=== PATIENT | male | born 1975 | race Caucasian/White ===

== ENCOUNTER 2021-11-30 14:43 | Emergency (ER) | payer OTHER, SELFPAY ==
--- NOTE | ~2021-11-30 | XR_ITS ---
XR ankle LT min 3V, XR foot LT min 3V 11/30/2021 15:34 Indication: Left foot pain after fall Procedure: 4 views left ankle and 4 views left foot Comparison: No prior studies for comparison. Findings: There are fractures involving the base of the second, third and fourth metatarsals with lat eral displacement of the second-fifth metatarsals (i.e. Lisfranc fracture dislocation). Ankle mortise intact. No significant soft tissue abnormality. Impression: 1: Lisfranc fracture/dislocation involving the second-fifth metatarsals Reviewed, dictated and finalized at location A. Impression: 1: Lisfranc fracture/dislocation involving the second-fifth metatarsals Impression: 1: Lisfranc fracture/dislocation involving the second-fifth metatarsals
[2021-11-30 14:44] VITALS: BP 154/102; PULSE 105; RESP 16; TEMP 36.1; O2SAT 95
[2021-11-30] MEDS: HYDROcodone/acetaminophen (*CRX) 5-325 MG TABLET 1 TAB PO (16:32)
--- NOTE | 2021-11-30 16:45 | ED.GENADULT ---
HPI - General Adult General Chief complaint: Extremity Injury, Lower Stated complaint: left foot injury - fall from golf cart Time Seen by Provider: 11/30/21 14:43 Source: RN notes reviewed History of Present Illness HPI narrative: Patient presents emergency department from home for left foot and ankle pain. Patient states that yesterday he fell out of his golf cart and ran over his foot states that since that time has been having pain and swelling in his left foot and has been unable to stand on it secondary to the pain. He does note an abrasion to his left knee from the fall but denies any pain in the left knee he denies any loss of consciousness he denies any chest pain shortness of breath abdominal pain numbness or tingling to extremities or any other symptoms Related Data Allergies Allergy/AdvReac Type Severity Reaction Status Date / Time No Known Allergies Allergy Unknown Verified 11/30/21 15:39 Review of Systems Review of Systems: Gen.: Denies fevers or chills Eyes: Denies eye pain or visual change ENT: Denies facial pain Respiratory: Denies shortness of breath CV: Denies chest pain GI: Denies abdominal pain nausea, emesis Musculoskeletal: See HPI Neuro: Denies numbness, tingling, weakness or focal weakness Skin: Denies rash Except as documented, all other systems reviewed and negative [facility] Past Medical History Medical History Kidney stones Umbilical hernia Surgical History Surgical History (Updated 03/15/19 @ 08:35 by Olimpia Grissom) History of umbilical hernia repair Social History Social History Smoking status: Current every day smoker Tobacco type: cigarettes Additional smoking assessment comments: 5 packs per week for about 23 years; smoking exposure Alcohol use details: 24 pack/week Other substance usage details: Occasional marijuana Gender identity (if verbalized by the patient): Male Exam Narrative: APPEARANCE: No acute distress, nontoxic, resting in bed EYES: EOMI HEENT: Normocephalic, atraumatic, OMM RESPIRATORY: No respiratory distress Clear to auscultation bilaterally with no rhonchi wheezing or rales. CARDIOVASCULAR: Regular rate and rhythm without murmurs rubs or gallops. ABDOMINAL: Soft, nontender, nondistended, no rebound or guarding MUSCULOSKELETAl: Moves all extremities. No clubbing, cyanosis no tenderness of the bilateral upper extremities or right lower extremity no tenderness of the left knee with full range of motion tender to palpation diffusely of the left foot and ankle with swelling and ecchymosis present dorsalis pedis pulse 2+ neurovascular intact no tenderness of the proximal fibula NEURO: Awake and alert. Following commands, speech normal, no focal deficits SKIN:: Warm, dry. No rashes lesions or abrasions PSYCHIATRIC: Normal affect/mood, Course Course Emergency Course: Discussed with Dr. Mena orthopedics states he does not perform foot and ankle surgery and patient does need a foot ankle specialist will transfer this time Discussed with patient need for transfer request [facility] Discussed with Dr. Doherty at [facility] ED accepts transfer Vital Signs Vital signs: Vital Signs Temperature 97.0 F L 11/30/21 14:44 Pulse Rate 105 H 11/30/21 14:44 Respiratory Rate 16 11/30/21 14:44 Blood Pressure 154/102 H 11/30/21 14:44 Pulse Oximetry 95 11/30/21 14:44 Oxygen Delivery Room Air 11/30/21 14:44 Temperature 97.0 F L 11/30/21 14:44 Pulse Rate 90 11/30/21 16:49 Respiratory Rate 16 11/30/21 16:49 Blood Pressure 146/89 H 11/30/21 16:49 Pulse Oximetry 97 11/30/21 16:49 Oxygen Delivery Room Air 11/30/21 14:44 Medical Decision Making Vital Signs Vital Signs: Vital Signs Temperature 97.0 F L 11/30/21 14:44 Pulse Rate 105 H 11/30/21 14:44 Respiratory Rate 16 11/30/21 14:44 Blood Pressure
[2021-11-30 16:49] VITALS: BP 146/89; PULSE 90; RESP 16; O2SAT 97
[2021-11-30] MEDS: TETANUS,DIPHTHERIA,AC PERTUSSIS ADULT (0.5 ML) BOOSTRIX IM (17:01)
--- NOTE | 2021-11-30 17:30 | PC.NURSE ---
pt. refused ambulance went pov to [facility]
== END 2021-11-30 16:49 | disposition short-term general hospital (02) ==
PROVIDERS: Emergency Provider Emergency Medicine
DX: S92.322A Displaced fracture of second metatarsal bone, left foot, initial encounter for closed fracture (principal); S92.332A Displaced fracture of third metatarsal bone, left foot, initial encounter for closed fracture; S92.342A Displaced fracture of fourth metatarsal bone, left foot, initial encounter for closed fracture; S92.352A Displaced fracture of fifth metatarsal bone, left foot, initial encounter for closed fracture; S80.212A Abrasion, left knee, initial encounter; Z23 Encounter for immunization; Z87.442 Personal history of urinary calculi; F17.210 Nicotine dependence, cigarettes, uncomplicated; V86.99XA Unspecified occupant of other special all-terrain or other off-road motor vehicle injured in nontraffic accident, initial encounter
CPT/HCPCS: 29515; 73610; 73630; 90471; 90715; 99284; A9270

== ENCOUNTER 2024-11-26 15:01 | Emergency (ER) | payer BC, SELFPAY ==
--- NOTE | ~2024-11-26 | XR_ITS ---
CHEST RADIOGRAPH, PA AND LATERAL CLINICAL HISTORY: Chest pain . COMPARISON: None available TECHNIQUE: PA and lateral views of the chest. FINDINGS The cardiomediastinal silhouette is unremarkable. The lungs are clear. IMPRESSION: No focal infiltrate or effusion. Reviewed, dictated and finalized at location A.
--- NOTE | ~2024-11-26 | CT_ITS ---
EXAMINATION: CTA chest DATE: 11/26/2024 18:44 INDICATION: Dyspnea radiating to the back TECHNIQUE: Computed tomographic angiography (CTA) of the chest was performed without and with 100 mL Omnipaque-350 intravenous contrast. Volume-rendered 3D-reconstructions of the aorta and large arterie s were constructed by the technologist on a separate workstation. Automated exposure control and iter ative reconstruction technique were employed. The dose-length product was 910.61 mGy-cm. COMPARISON: None. FINDINGS: No pulmonary embolism. Mild discoid atelectasis at the anterobasilar segment of the left lower lobe. No pneumonia, pulmonary edema, pleural effusion or pneumothorax. Heart size is normal. No pericardial or pleural effusion. Thoracic aorta is normal in caliber with no dissection. No pathologically enlar ged thoracic lymphadenopathy. Diffuse hepatic steatosis.. Moderate thoracic spondylosis with bridgin g osteophytes at multiple levels consistent with diffuse idiopathic skeletal hyperostosis (DISH). IMPRESSION: 1. No pulmonary embolism or other acute cardiopulmonary disease. Reviewed, dictated and finalized at location A.
--- NOTE | 2024-11-26 15:03 | ECG_ITS ---
Test Date: 2024-11-26 15:10:01 Measurements Intervals [place] Rate: 80 P: 17 W[place]: 158 QRS: 5 QRSD: 89 T: 11 QT: 369 QTc: 428 Interpretive Statements SINUS RHYTHM SEPTAL MYOCARDIAL INFARCTION , OF INDETERMINATE AGE [40+ ms Q WAVE IN V1/V2] No previous ECG available for comparison Electronically Signed On 11-27-2024 16:02:26 CDT by Luis Leonard M.D.
[2024-11-26 15:04] VITALS: BP 183/115; PULSE 80; RESP 18; TEMP 36.6; O2SAT 95
--- OUTSIDE RECORDS SUMMARY | 2024-11-26 15:04 | XMS_ITS | Referral Summary ---
Author Organization [facility] Address [address] [place] [address] Care Team Providers Care Market Investigator Name Role Phone No, Physician Primary Care Provider [phone] Allergies No known active allergies Medications No known medications Active Problems Problem Noted Date Diagnosed Date Lisfranc dislocation, left, initial encounter Overview (12/01/2021): Added automatically from request for surgery [id number] Closed fracture of bone of left foot 12/01/2021 Overview (12/01/2021): Added automatically from request for surgery [id number] Immunizations Immunization Administration Dates Next Due Tdap 11/30/2021 Social History Tobacco Use Types Packs/Day Years Used Date Smoking Tobacco: Every Day Cigarettes Smokeless Tobacco: Never Tobacco Cessation:Ready to Q uit: No; Counseling Given: No Alcohol Use Standard Drinks/Week Comments Yes 0 (1 standard drink = 0.6 oz pur e alcohol) social AUDIT-C Answer Date Recorded Q1: How often do you have a drink containing alcohol? 4 or more times a week 01/26/2022 Q2: How many drinks containi ng alcohol do you have on a typical day when you are drinking? 3 or 4 Q3: How often do you have si x or more drinks on one occasion? Monthly 01/26/2022 Sex and Gender Information Value Date Recorded Sex Assigned at Not on file Legal Sex Male 6:44 PM ALLIANCES CONSULTANT Gender Identity Male 01/25/2022 3:45 PM CDT Sexual Orientation Not on file Last Filed Vital Signs Vital Sign Reading Time Taken Comments Blood Pressure 163/98 01/26/2022 3:01 PM CDT Pulse 111 01/26/2022 3:01 PM CDT Temperature 36.9 C (98.4 F) 01/26/2022 3:01 PM CDT Respiratory Rate 19 12/05/2021 3:20 PM CDT Oxygen Saturation 96% 12/05/2021 3:20 PM CDT Inhaled Oxygen Concentration - - Weight 116.6 kg (257 lb) 01/26/2022 3:01 PM CDT Height 180.3 cm (5' 11) 01/26/2022 3:01 PM CDT Body Mass Index 35.84 01/26/2022 3:01 PM CDT Plan of Treatment Not on file Medical Devices Implanted Type Area Loan Auditor Device Identifier Shelf Expiration Date Model / Serial / Lot [employer]Or tho Evos Mini 56x7.5x2.2mm 140mm 6 Hole Shaft Variable Angle Lock Low [id number] - [id number] Implanted:Qty: 1 on 12/05/2021 by Catherine Galaviz MD at [facility] Left: Foot [employer]Or tho [id number] / / [employer]Or [employer] 2.7mm 4.3mm 34mm Lock Self Retain Flat Head Long Bone Small Bone [id number] - [id number] Implanted:Qty: 1 on 12/05/2021 by Catherine Galaviz MD at [facility] Left: Foot [employer]Or tho [id number] / / [employer]Or [employer] 2.7mm 4.3mm 18mm Self Tap Lock Small Bone Long Bone T8 2mm Screw [id number] - [id number] Implanted:Qty: 1 on 12/05/2021 by Catherine Galaviz MD at [facility] Left: Foot [employer]Or tho [id number] / / [employer] Steinmann 5/64in 9in Trocar Point One End Pin Fixation Stainless 1620-509ns - [id number] Implanted:Qty: 2 on 12/05/2021 by Catherine Galaviz MD at [facility] Left: Foot [employer] [id number] / / [employer]Or tho Evos 3.5mm 36mm Self Tap Cortex Screw Bone Sterile [id number] - [id number] Implanted:Qty: 1 on 12/05/2021 by Catherine Galaviz MD at [facility] Left: Foot [employer] [id number] / / [employer] Evos Mini 2.4mm 26mm Self Tap Cortex T7 Screw Bone Sterile [id number] - [id number] Implanted:Qty: 1 on 12/05/2021 by Catherine Galaviz MD at [facility] Left: Foot [employer]Or tho [id number] / / [employer] Evos Mini 2.4mm 3.8mm 18mm Self Tap Manager Parking Long Bone Small Bone [id number] - [id number] Implanted:Qty: 2 on 12/05/2021 by Catherine Galaviz MD at [facility] Left: Foot [employer] tho [id number] / / [employer] Evos 2.4mm 16mm Self Tap Self Retaining Drive Small Bone Long [id number] - [id number] Implanted:Qty: 1 on 12/05/2021 by Catherine Galaviz MD at [facility] Left: Foot [employer] [id number] / / [employer] Evos Mini 2.4mm 3.8mm 16mm Lock Long Bone Small Bone T7 Screw [id number] - [id number] Implanted:Qty: 2 on 12/05/2021 by Catherine Galaviz MD at [facility] Left: Foot [employer] [id number] / / [employer] Evos Mini 2.7mm 4.5mm 38mm Self Tap Cortex T8 Screw Bone Sterile [id number] - [id number] Implanted:Qty: 1 on 12/05/2021 by Catherine Galaviz MD at [facility] Left: Foot [employer] [id number] / / [employer] Evos 2.7mm 4.5mm 16mm Self Tap Cortex T8 Screw Bone Mini Plate [id number] - [id number] Implanted:Qty: 1 on 12/05/2021 by Catherine Galaviz MD at [facility] Left: Foot [employer]/Or tho [id number] / / [employer]Or tho 2.7mm 4.5mm 14mm Self Retaining Screwdriver Self Tap Flat Head [id number] - [id number] Implanted:Qty: 1 on 12/05/2021 by Catherine Galaviz MD at [facility] Left: Foot [employer]Or tho [id number] / / [employer]Or [employer] Evos Mini 49mm 20 Hole Strenght Low Profile Variable Angle Small [id number] - [id number] Implanted:Qty: 1 on 12/15/2021 by Catherine Galaviz MD at [facility] Left: Foot [employer]/Or tho [id number] / / Explanted Type Area Loan Auditor Device Identifier Shelf Expiration Date Model / Serial / Lot [employer] Yoselyn .062in 9in Trocar Point One End Orthopedic Wire [id number] - [id number] Explanted:Qty: 5 on 12/05/2021 by Catherine Galaviz MD at [facility] Left: Foot [employer] [id number] S / / Insurance [facility] Address: [address] [phone] [facility] Address: [address] [place] [phone] [facility] [employer]/PPO Address: [place] [phone] Care Teams Market Investigator Relationship Specialty Start Date End Date No, Physician PCP - General 11/30/21
--- OUTSIDE RECORDS SUMMARY | 2024-11-26 15:04 | XMS_ITS | Clinical Summary ---
Author Organization [facility] Address [address] [place] [address] Care Team Providers Care Dental Billing Specialist Name Role Phone New Referring, Provider Primary Care Provider Un available Allergies No known active allergies Social History Tobacco Use Types Packs/Day Years Used Date Smoking Tobacco: Every Day Smokeless Tobacco: Current Alcohol Use Standard Drinks/Week Comments Yes 0 (1 standard drink = 0.6 oz pur e alcohol) socially Sex and Gender Information Value Date Recorded Sex Assigned at Not on file Legal Sex Male 8:33 PM CDT Gender Identity Not on file Sexual Orientation Not on file Last Filed Vital Signs Vital Sign Reading Time Taken Comments Blood Pressure 149/131 06/14/2018 1:28 PM MIDDLEWARE ARCHITECT Pulse 113 06/14/2018 1:27 PM MIDDLEWARE ARCHITECT Temperature 36 C (96.8 F) 06/14/2018 1:27 PM MIDDLEWARE ARCHITECT Respiratory Rate 18 06/14/2018 1:27 PM MIDDLEWARE ARCHITECT Oxygen Saturation 96% 06/14/2018 1:27 PM MIDDLEWARE ARCHITECT Inhaled Oxygen Concentration - - Weight 115.7 kg (255 lb) 06/14/2018 1:27 PM MIDDLEWARE ARCHITECT Height 180.3 cm (5' 11) 06/14/2018 1:27 PM MIDDLEWARE ARCHITECT Body Mass Index 35.57 06/14/2018 1:27 PM MIDDLEWARE ARCHITECT Plan of Treatment Health Maintenance Due Date Last Done Comments Colorectal Cancer Screening Colonoscopy (10 Years) 1976 Annual Physical 08/10/1979 Hepatitis C 1994 DTaP, Tdap and Td Vaccines ( 1 - Tdap) 08/10/1995 Hepatitis B Vaccines (1 of 3 - 19+ 3-dose series) 08/10/1995 COVID-19 Vaccine (2023-2 5 season) 2024 Meningococcal B Vaccine Aged Out No l onger eligible based on patient's age to complete this topic Meningococcal Vaccine Aged Out No lidia hardeep eligible based on patient's age to complete this topic Pneumococcal Vaccine: Pediat rics (0 to 5 Years) and At-Risk Patients (6 to 49 Years) Aged Out No longer eligible b ased on patient's age to complete this topic RSV Immunizations Under 20 Months Aged Out No longer eligible based on patient's age to complete this topic Care Teams Dental Billing Specialist Relationship Specialty Start Date End Date New Referring, Provider PCP - General UNKNOWN PHYSICIAN SPECIALTY 06/14/18
--- OUTSIDE RECORDS SUMMARY | 2024-11-26 15:04 | XMS_ITS | Encounter Summary ---
Author Organization [facility] Address [address] [place] [address] Care Team Providers Care Mobility Engineer Name Role Phone New Referring, Provider Primary Care Provider Un available Encounter Details Date Type Department Care Team (Latest Contact Info) Description 03/11/2018 Abstract [facility] , Tevin Cr MD Social History Tobacco Use Types Packs/Day Years Used Date Smoking Tobacco: Never Assessed Sex and Gender Information Value Date Recorded Sex Assigned at Not on file Legal Sex Male 8:33 PM CDT Gender Identity Not on file Sexual Orientation Not on file documented as of this encounter Plan of Treatment Not on file documented as of this encounter Visit Diagnoses Not on filedocumented in this encounter Care Teams Mobility Engineer Relationship Specialty Start Date End Date New Referring, Provider PCP - General UNKNOWN PHYSICIAN SPECIALTY 06/14/18 documented as of this encounter
--- OUTSIDE RECORDS SUMMARY | 2024-11-26 15:04 | XMS_ITS | Clinical Summary ---
Author Organization [facility] Address [address] [place] [address] Care Team Providers Care Wound Specialist Name Role Phone No, Physician Primary Care Provider [phone] Allergies No known active allergies Medications No known medications Active Problems Problem Noted Date Diagnosed Date Lisfranc dislocation, left, initial encounter Overview (12/01/2021): Added automatically from request for surgery [id number] Closed fracture of bone of left foot 12/01/2021 Overview (12/01/2021): Added automatically from request for surgery [id number] Immunizations Immunization Administration Dates Next Due Tdap [...] on file Legal Sex Male 6:44 PM SOLUTIONS OPERATOR Gender Identity Male 01/25/2022 3:45 PM CDT Sexual Orientation Not on file Obstetrics History Last Filed Vital Signs Vital Sign Reading [...] 01/26/2022 3:01 PM CDT Plan of Treatment Health Maintenance Due Date Last Done Comments Colon Cancer Screening-Colonoscopy 1976 Depression Screening 1976 Hepatitis C Screening 1976 Hepatitis B Screening 1994 Regular Well Visit/Exam 18-64 1994 Pneumococcal vaccine <65 (1 of 2 - PCV) 08/10/1995 Influenza Vaccine (#1) 2025 DTaP/Tdap/Td Vaccine (2 - Td or Tdap) 12/01/2031 Medical Devices Implanted Type Area Rug Underlay Machine Operator Device Identifier Shelf Expiration Date Model / Serial / Lot [employer]Or tho Evos Mini 56x7.5x2.2mm 140mm 6 Hole Shaft Variable Angle Lock Low [id number] - [id number] Implanted:Qty: 1 on 12/05/2021 by Catherine Galaviz MD at [facility] Left: Foot [employer]Or tho [id number] / / [employer]Or tho 2.7mm 4.3mm 34mm Lock Self Retain Flat Head Long Bone Small Bone [id number] - [id number] Implanted:Qty: 1 on 12/05/2021 by Catherine Galaviz MD at [facility] Left: Foot [employer]Or tho [id number] / / [employer]Or tho 2.7mm 4.3mm 18mm Self Tap Lock Small Bone Long Bone T8 2mm Screw [id number] - [id number] Implanted:Qty: 1 on 12/05/2021 by Catherine Galaviz MD at [facility] Left: Foot [employer]Or tho [id number] / / [employer] [facility] 5/64in 9in Trocar Point One End Pin Fixation Stainless 1620-509ns - [id number] Implanted:Qty: 2 on 12/05/2021 by Catherine Galaviz MD at [facility] Left: Foot [employer] [id number] / / [employer] Evos 3.5mm 36mm Self Tap Cortex Screw Bone Sterile [id number] - [id number] Implanted:Qty: 1 on 12/05/2021 by Catherine Galaivz MD at [facility] Left: Foot [employer]Or tho [id number] / / [employer] Evos Mini 2.4mm 26mm Self Tap Cortex T7 Screw Bone Sterile [id number] - [id number] Implanted:Qty: 1 on 12/05/2021 by Catherine Galaviz MD at [facility] Left: Foot [employer]Or tho [id number] / / [employer]Or [employer] Evos Mini 2.4mm 3.8mm 18mm Self Tap [employer] Business [employer] Developer Long Bone Small Bone [id number] - [id number] Implanted:Qty: 2 on 12/05/2021 by Catherine Galaviz MD at [facility] Left: Foot [employer] [id number] / / [employer] Evos 2.4mm 16mm Self Tap Self Retaining Drive Small Bone Long [id number] - [id number] Implanted:Qty: 1 on 12/05/2021 by Catherine Galaviz MD at [facility] Left: Foot [employer] tho [id number] / / [employer] Evos Mini 2.4mm 3.8mm 16mm Lock Long Bone Small Bone T7 Screw [id number] - [id number] Implanted:Qty: 2 on 12/05/2021 by Catherine Galaviz MD at [facility] Left: Foot [employer] [id number] / / [employer] Evos Mini 2.7mm 4.5mm 38mm Self Tap Cortex T8 Screw Bone Sterile [id number] - [id number] Implanted:Qty: 1 on 12/05/2021 by Catherine Galaviz MD at [facility] Left: Foot [employer] [id number] / / [employer] Evos 2.7mm 4.5mm 16mm Self Tap Cortex T8 Screw Bone Mini Plate [id number] - [id number] Implanted:Qty: 1 on 12/05/2021 by Catherine Galaviz MD at [facility] Left: Foot [employer] tho [id number] / / [employer]Or [employer] 2.7mm 4.5mm 14mm Self Retaining Screwdriver Self Tap Flat Head [id number] - [id number] Implanted:Qty: 1 on 12/05/2021 by Catherine Galaviz MD at [facility] Left: Foot [employer] [id number] / / [employer] Evos Mini 49mm 20 Hole Strenght Low Profile Variable Angle Small [id number] - [id number] Implanted:Qty: 1 on 12/15/2021 by Catherine Galaviz MD at [facility] Left: Foot [employer]Or tho [id number] / / Explanted Type Area Rug Underlay Machine Operator Device Identifier Shelf Expiration Date Model / Serial / Lot [employer] Yoselyn .062in 9in Trocar Point One End Orthopedic Wire [id number] - [id number] Explanted:Qty: 5 on 12/05/2021 by Catherine Galaviz MD at [facility] Left: Foot [employer] [id number] S / / Insurance [facility] Care Teams Wound Specialist Relationship Specialty Start Date End Date No, Physician PCP - General 11/30/21
--- NOTE | 2024-11-26 15:15 | ED.CHESTPAIN ---
HPI - Chest Pain General Chief Complaint: Chest Pain <Camille Acharya PA-C - Last Filed: 11/26/24 18:54> Stated Complaint: Left chest pain with numbness in left arm <Camille Acharya PA-C - Last Filed: 11/26/24 18:54> Time Seen by Provider: 11/26/24 15:15 <Camille Acharya PA-C - Last Filed: 11/26/24 18:54> Focused HPI: This is a 49 year old male that presents to the ER for chest pain. Reports the pain is sharp in nature. Ongoing over the last couple of days constantly. Reports intermittent tingling in the left arm. Reports some shortness of breath. No history of CAD. He is a smoker. Reports family history of CAD. GENERAL: Well-appearing, well-nourished, and in no acute distress. HEAD: Normocephalic, atraumatic. CHEST: Clear to auscultation. ?No respiratory distress. HEART: Regular rate and rhythm.? NEURO: ?Alert and oriented x3. Patient screened in triage and initial orders placed.? ?Additional care and disposition to be based upon?diagnostic testing and treatment. <Camille Acharya PA-C - Last Filed: 11/26/24 18:54> History of Present Illness HPI narrative: as per mse. sharp constant anterior CP radiating through to back for 2 days constantly. <Daniel Unger III, DO - Last Filed: 11/26/24 18:26> Related Data Allergies/Adverse Reactions: Allergies Allergy/AdvReac Type Severity Reaction Status Date / Time No Known Allergies Allergy Unknown Verified 11/26/24 17:50 <Camille Acharya PA-C - Last Filed: 11/26/24 18:54> Review of Systems Review of Systems: All systems reviewed & are unremarkable except as noted in HPI and below <Daniel Unger III DO - Last Filed: 11/26/24 18:26> PMFSH Past Medical History Medical History: Medical History Kidney stones Umbilical hernia <Camille Acharya PA-C - Last Filed: 11/26/24 18:54> Surgical History Surgical History: Surgical History (Updated 03/15/19 @ 08:35 by Olimpia Grissom) History of umbilical hernia repair <Camille Acharya PA-C - Last Filed: 11/26/24 18:54> Social History Social History: Social History Smoking status: Current every day smoker Tobacco type: cigarettes Additional smoking assessment comments: 5 packs per week for about 23 years; smoking exposure Alcohol use details: 24 pack/week Other substance usage details: Occasional marijuana Gender identity (if verbalized by the patient): Male <Camille Acharya PA-C - Last Filed: 11/26/24 18:54> Exam Const: General: healthy appearing and no acute distress <Daniel Stefan Unger III, DO - Last Filed: 11/26/24 18:26> Nutritional Appearance: well nourished <Daniel Stefan Ungre III, DO - Last Filed: 11/26/24 18:26> Orientation/consciousness: patient oriented x3 <Daniel Stefan Unger III, DO - Last Filed: 11/26/24 18:26> Limitations: no limitations <Daniel Stefan Unger III, DO - Last Filed: 11/26/24 18:26> Eyes: Pupils: Equal, round and reactive pupils present <Daniel Stefan Unger III, DO - Last Filed: 11/26/24 18:26> EOM: EOMs intact bilaterally <Daniel Stefan Unger III, DO - Last Filed: 11/26/24 18:26> Chest: Chest palpation & inspection: normal inspection of the chest <Daniel Stefan Unger III, DO - Last Filed: 11/26/24 18:26> Resp: Effort & Inspection: normal respiratory effort <Daniel Stefan Unger III, DO - Last Filed: 11/26/24 18:26> Auscultation: clear to auscultation bilaterally <Daniel Stefan Unger III, DO - Last Filed: 11/26/24 18:26> Cardio: Rate: regular rate <Daniel Stefan Unger III, DO - Last Filed: 11/26/24 18:26> Rhythm: regular rhythm <Daniel Stefan Unger III, DO - Last Filed: 11/26/24 18:26> GI: GI Palp: Yes Soft to palpation and No Tenderness to palpation present (GI) <Daniel Stefan Unger III, DO - Last Filed: 11/26/24 18:26> Auscultation: normal bowel sounds <Daniel Setfan Unger III, DO - Last Filed: 11/26/24 18:26> Back/Spine/Pelvis: Back: no CVA tenderness <Daniel Stefan Unger III, DO - Last Filed: 11/26/24 18:26> Skin: General skin exam: normal color <Daniel Stefan Unger III, DO - Last Filed: 11/26/24 18:26> Rashes: no rashes <Daniel Stefan Unger III, DO - Last Filed: 11/26/24 18:26> Wounds: no wounds <Daniel Stefan Unger III, DO - Last Filed: 11/26/24 18:26> Neuro: General: patient oriented x3, moves all extremities, no meningeal signs, no focal motor deficits and CN's II-XI intact bilaterally <Daniel Stefan Unger III, DO - Last Filed: 11/26/24 18:26> Cranial nerves: Yes Nystagmus not present <Daniel Stefan Unger III, DO - Last Filed: 11/26/24 18:26> Speech: normal speech <Daniel Stefan Unger III, DO - Last Filed: 11/26/24 18:26> Extrem: General: normal to inspection and no clubbing, cyanosis or edema <Daniel Stefan Unger III, DO - Last Filed: 11/26/24 18:26> Psych: Mental Status: mental status grossly normal <Daniel Stefan Unger III, DO - Last Filed: 11/26/24 18:26> Affect: normal affect <Daniel Stefan Unger III, DO - Last Filed: 11/26/24 18:26> Attitude: cooperative <Daniel Stefan Unger III, DO - Last Filed: 11/26/24 18:26> Course Course Emergency Course: Patient signed out to me pending CTA of chest for rule out of dissection although pretest probability was reasonably low. <Kati Campo MD - Last Filed: 11/26/24 19:34> Vital Signs Vital signs: Vital Signs Temperature 97.9 F 11/26/24 15:04 Pulse Rate 80 11/26/24 15:04 Respiratory Rate 18 11/26/24 15:04 Blood Pressure 183/115 H 11/26/24 15:04 Pulse Oximetry 95 11/26/24 15:04 Oxygen Delivery Room Air 11/26/24 15:04 Temperature 97.9 F 11/26/24 15:04 Pulse Rate 80 11/26/24 15:04 Respiratory Rate 18 11/26/24 15:04 Blood Pressure 183/115 H 11/26/24 15:04 Pulse Oximetry 95 11/26/24 15:04 Oxygen Delivery Room Air 11/26/24 15:04 <Camille Acharya PA-C - Last Filed: 11/26/24 18:54> Vital Signs Temperature 97.9 F 11/26/24 15:04 Pulse Rate 80 11/26/24 15:04 Respiratory Rate 18 11/26/24 15:04 Blood Pressure 183/115 H 11/26/24 15:04 Pulse Oximetry 95 11/26/24 15:04 Oxygen Delivery Room Air 11/26/24 15:04 Temperature 97.9 F 11/26/24 15:04 Pulse Rate 80 11/26/24 15:04 Respiratory Rate 18 11/26/24 15:04 Blood Pressure 183/115 H 11/26/24 15:04 Pulse Oximetry 95 11/26/24 15:04 Oxygen Delivery Room Air 11/26/24 15:04 <Daniel Stefan Unger III, DO - Last Filed: 11/26/24 18:26> Vital Signs Temperature 97.9 F 11/26/24 15:04 Pulse Rate 80 11/26/24 15:04 Respiratory Rate 18 11/26/24 15:04 Blood Pressure 183/115 H 11/26/24 15:04 Pulse Oximetry 95 11/26/24 15:04 Oxygen Delivery Room Air 11/26/24 15:04 Temperature 97.9 F 11/26/24 15:04 Pulse Rate 80 11/26/24 15:04 Respiratory Rate 18 11/26/24 15:04 Blood Pressure 183/115 H 11/26/24 15:04 Pulse Oximetry 95 11/26/24 15:04 Oxygen Delivery Room Air 11/26/24 15:04 <Kati Campo MD - Last Filed: 11/26/24 19:34> MDM - Chest Pain MDM Narrative Medical decision making narrative: Pt presents with constant sharp CP for 2d with radiation to back. will get cp work up to rule out cad and pneumo and likely cta to rule out dissection. Pt BP is elevated and has not seen doctor and is not on meds for BP. ekg and trop are ok and cxr and other labs unremarkable. will turn over to dr campo at 1900 awaiting cta of chest. if neg home on nsaid and antihypertensive and follow up with Dr Tyler <Camille Acharya PA-C - Last Filed: 11/26/24 18:54> Pt presents with constant sharp CP for 2d with radiation to back. will get cp work up to rule out cad and pneumo and likely cta to rule out dissection. Pt BP is elevated and has not seen doctor and is not on meds for BP. ekg and trop are ok and cxr and other labs unremarkable. will turn over to dr campo at 1900 awaiting cta of chest. if neg home on nsaid ans antihypertensive and follow up with Dr Tyler <Daniel Unger III, DO - Last Filed: 11/26/24 18:26> Differential Diagnosis Differential diagnosis: Likely pneumothorax, unstable angina pectoris, atypical chest pain, st elevation myocardial infarction, costochondritis, chest pain and other (aortic dissection) <Daniel Unger III, DO - Last Filed: 11/26/24 18:26> Lab Data Result diagrams: 11/26/24 15:20 11/26/24 15:20 <Camille Acharya PA-C - Last Filed: 11/26/24 18:54> Labs: Lab Results 11/26/24 11/26/24 Range/Units 15:20 18:02 WBC 8.3 (4.5-10.0) K/mm3 RBC 5.32 (4.6-6.20) M/mm3 Hgb 15.9 (14.0-18.0) g/dL Hct 47.1 (42.0-52.0) % MCV 88.5 (80-100) fl MCH 29.9 (26-34) pg MCHC 33.8 (32-36) g/dl RDW 12.5 (11.5-14.5) % Plt Count 255 (150-375) k/mm3 MPV 9.6 (7.4-10.4) fl Immature Gran % (Auto) 0.1 (0-0.5) % Neut % (Auto) 49.7 (45.5-73.1) % Lymph % (Auto) 35.3 (18.3-44.2) % [place] % (Auto) 7.2 (2.6-8.5) % Eos % (Auto) 6.6 H (0-4.4) % Baso % (Auto) 1.1 (0.2-1.2) % Lymph # (Auto) 2.93 (0.9-3.2) K/mm3 [place] # (Auto) 0.6 (0.1-0.6) K/mm3 Eos # (Auto) 0.6 H (0-0.3) K/mm3 Baso # (Auto) 0.1 (0.0-0.1) K/mm3 Abs Immat Gran (auto) 0.01 (0.00-0.031) K/mm3 Absolute Neuts (auto) 4.1 (1.3-6.7) K/mm3 Absolute Nucleated RBC 0.000 (0.0-0.012) K/mm3 Nucleated RBC % 0.0 (0.0-0.2) % PT 13.4 (11.1-14.7) Seconds INR 1.0 APTT 26.4 (22.3-36.8) Seconds Sodium 139 (137-145) mmol/L Potassium 3.7 (3.4-5.0) mmol/L Chloride 108 H (98-107) mmol/L Carbon Dioxide 24 (22-30) mmol/L Anion Gap 7 (4-12) mmol/L BUN 10 (9-20) mg/dL Creatinine 0.78 (0.7-1.3) mg/dL Estim Creat Clear Calc 136 ml/min Estimated GFR > 60 (59 - ) Glucose 92 (65-110) mg/dL Calcium 9.2 (8.4-10.2) mg/dL Total Bilirubin 0.7 (0.2-1.3) mg/dL AST 44 (17-59) U/L ALT 68 H (6-50) U/L Alkaline Phosphatase 69 (38-126) U/L Troponin I < 0.012 < 0.012 (0.000-0.034) ng/mL Total Protein 7.7 (6.3-8.2) g/dL Albumin 4.2 (3.5-5.1) g/dL Lipase 173 (23-300) U/L <Camille Acharya PA-C - Last Filed: 11/26/24 18:54> Lab Results 11/26/24 11/26/24 Range/Units 15:20 18:02 WBC 8.3 (4.5-10.0) K/mm3 RBC 5.32 (4.6-6.20) M/mm3 Hgb 15.9 (14.0-18.0) g/dL Hct 47.1 (42.0-52.0) % MCV 88.5 (80-100) fl MCH 29.9 (26-34) pg MCHC 33.8 (32-36) g/dl RDW 12.5 (11.5-14.5) % Plt Count 255 (150-375) k/mm3 MPV 9.6 (7.4-10.4) fl Immature Gran % (Auto) 0.1 (0-0.5) % Neut % (Auto) 49.7 (45.5-73.1) % Lymph % (Auto) 35.3 (18.3-44.2) % [place] % (Auto) 7.2 (2.6-8.5) % Eos % (Auto) 6.6 H (0-4.4) % Baso % (Auto) 1.1 (0.2-1.2) % Lymph # (Auto) 2.93 (0.9-3.2) K/mm3 [place] # (Auto) 0.6 (0.1-0.6) K/mm3 Eos # (Auto) 0.6 H (0-0.3) K/mm3 Baso # (Auto) 0.1 (0.0-0.1) K/mm3 Abs Immat Gran (auto) 0.01 (0.00-0.031) K/mm3 Absolute Neuts (auto) 4.1 (1.3-6.7) K/mm3 Absolute Nucleated RBC 0.000 (0.0-0.012) K/mm3 Nucleated RBC % 0.0 (0.0-0.2) % PT 13.4 (11.1-14.7) Seconds INR 1.0 APTT 26.4 (22.3-36.8) Seconds Sodium 139 (137-145) mmol/L Potassium 3.7 (3.4-5.0) mmol/L Chloride 108 H (98-107) mmol/L Carbon Dioxide 24 (22-30) mmol/L Anion Gap 7 (4-12) mmol/L BUN 10 (9-20) mg/dL Creatinine 0.78 (0.7-1.3) mg/dL Estim Creat Clear Calc 136 ml/min Estimated GFR > 60 (59 - ) Glucose 92 (65-110) mg/dL Calcium 9.2 (8.4-10.2) mg/dL Total Bilirubin 0.7 (0.2-1.3) mg/dL AST 44 (17-59) U/L ALT 68 H (6-50) U/L Alkaline Phosphatase 69 (38-126) U/L Troponin I < 0.012 < 0.012 (0.000-0.034) ng/mL Total Protein 7.7 (6.3-8.2) g/dL Albumin 4.2 (3.5-5.1) g/dL Lipase 173 (23-300) U/L <Daniel Unger III, DO - Last Filed: 11/26/24 18:26> Lab Results 11/26/24 11/26/24 Range/Units 15:20 18:02 WBC 8.3 (4.5-10.0) K/mm3 RBC 5.32 (4.6-6.20) M/mm3 Hgb 15.9 (14.0-18.0) g/dL Hct 47.1 (42.0-52.0) % MCV 88.5 (80-100) fl MCH 29.9 (26-34) pg MCHC 33.8 (32-36) g/dl RDW 12.5 (11.5-14.5) % Plt Count 255 (150-375) k/mm3 MPV 9.6 (7.4-10.4) fl Immature Gran % (Auto) 0.1 (0-0.5) % Neut % (Auto) 49.7 (45.5-73.1) % Lymph % (Auto) 35.3 (18.3-44.2) % [place] % (Auto) 7.2 (2.6-8.5) % Eos % (Auto) 6.6 H (0-4.4) % Baso % (Auto) 1.1 (0.2-1.2) % Lymph # (Auto) 2.93 (0.9-3.2) K/mm3 [place] # (Auto) 0.6 (0.1-0.6) K/mm3 Eos # (Auto) 0.6 H (0-0.3) K/mm3 Baso # (Auto) 0.1 (0.0-0.1) K/mm3 Abs Immat Gran (auto) 0.01 (0.00-0.031) K/mm3 Absolute Neuts (auto) 4.1 (1.3-6.7) K/mm3 Absolute Nucleated RBC 0.000 (0.0-0.012) K/mm3 Nucleated RBC % 0.0 (0.0-0.2) % PT 13.4 (11.1-14.7) Seconds INR 1.0 APTT 26.4 (22.3-36.8) Seconds Sodium 139 (137-145) mmol/L Potassium 3.7 (3.4-5.0) mmol/L Chloride 108 H (98-107) mmol/L Carbon Dioxide 24 (22-30) mmol/L Anion Gap 7 (4-12) mmol/L BUN 10 (9-20) mg/dL Creatinine 0.78 (0.7-1.3) mg/dL Estim Creat Clear Calc 136 ml/min Estimated GFR > 60 (59 - ) Glucose 92 (65-110) mg/dL Calcium 9.2 (8.4-10.2) mg/dL Total Bilirubin 0.7 (0.2-1.3) mg/dL AST 44 (17-59) U/L ALT 68 H (6-50) U/L Alkaline Phosphatase 69 (38-126) U/L Troponin I < 0.012 < 0.012 (0.000-0.034) ng/mL Total Protein 7.7 (6.3-8.2) g/dL Albumin 4.2 (3.5-5.1) g/dL Lipase 173 (23-300) U/L <Kati Campo MD - Last Filed: 11/26/24 19:34> Imaging Data Radiologist's impression: ITS Impressions Chest X-Ray 11/26/24 15:53 IMPRESSION: No focal infiltrate or effusion. <Camille Acharya PA-C - Last Filed: 11/26/24 18:54> Critical Care Time Critical Care Time Critical Care Time: No <Camille Acharya PA-C - Last Filed: 11/26/24 18:54> Discharge Plan Discharge Clinical Impression: Atypical chest pain <Camille Acharya PA-C - Last Filed: 11/26/24 18:54> Patient Disposition: Home <Camille Acharya PA-C - Last Filed: 11/26/24 18:54> Condition: Stable <Camille Acharya PA-C - Last Filed: 11/26/24 18:54> Instructions: Antibiotic Form, Chest Wall Pain (ED) <Camille Acharya PA-C - Last Filed: 11/26/24 18:54> Additional Instructions: Your workup did not identify a cause of your symptoms and this included EKG, cardiac enzymes x2, and a CTA of your chest. Take the blood pressure medication as prescribed and you can use the NSAID prescribed for pain. Follow-up with primary care provider, either someone you are able to initiate care with or try the physician listed below. Return to the emergency department new or worsening symptoms. <Camille Acharya PA-C - Last Filed: 11/26/24 18:54> Patient Language: Persian <Camille Acharya PA-C - Last Filed: 11/26/24 18:54> Prescriptions: New naproxen [Naprosyn] 500 mg tablet 500 mg PO BID Qty: 20 0RF hydrochlorothiazide 25 mg tablet 25 mg PO DAILY Qty: 30 0RF No Action ibuprofen 800 mg tablet 800 mg PO Q6H PRN (Reason: pain) Qty: 30 0RF <Camille Acharya PA-C - Last Filed: 11/26/24 18:54> Follow-up/Referrals: PHYSICIAN,[employer]MENT LEADER [Primary Care Provider] - Vernace,Jesika M., DO [Physician] - <Camille Acharya PA-C - Last Filed: 11/26/24 18:54> Stand Alone Forms: Work/School Release IP <Camille Acharya PA-C - Last Filed: 11/26/24 18:54> Time of Disposition: 19:21 <Camille Acharya PA-C - Last Filed: 11/26/24 18:54> 19:21 <Daniel Unger III, DO - Last Filed: 11/26/24 18:26> 19:21 <Kati Campo MD - Last Filed: 11/26/24 19:34>
[2024-11-26 15:26] LABS: Hematocrit 47.1 % (42.0-52.0); Hemoglobin 15.9 g/dL (14.0-18.0); Immature Granulocyte Percent A 0.1 % (0-0.5); Lymphocytes Absolute Auto 2.93 K/mm3 (0.9-3.2); Mean Corpuscular HGB Conc 33.8 g/dl (32-36); Mean Corpuscular Hemoglobin 29.9 pg (26-34); Mean Corpuscular Volume 88.5 fl (80-100); Nucleated Red Blood Cells Absolute Auto 0.000 K/mm3 (0.0-0.012); Nucleated Red Blood Cells Perc 0.0 % (0.0-0.2); Platelet Count Result 255 k/mm3 (150-375); Red Blood Count 5.32 M/mm3 (4.6-6.20); White Blood Count 8.3 K/mm3 (4.5-10.0)
[2024-11-26 15:37] LABS: INR 1.0; Prothrombin Time 13.4 Seconds (11.1-14.7)
[2024-11-26 15:38] LABS: Partial Thromboplastin Time 26.4 Seconds (22.3-36.8)
[2024-11-26 15:48] LABS: Alanine Aminotransferase 68 U/L (6-50); Albumin Level 4.2 g/dL (3.5-5.1); Alkaline Phosphatase 69 U/L (38-126); Anion Gap 7 mmol/L (4-12); Aspartate Amino Transferase 44 U/L (17-59); Bilirubin,Total 0.7 mg/dL (0.2-1.3); Blood Urea Nitrogen 10 mg/dL (9-20); Calcium 9.2 mg/dL (8.4-10.2); Carbon Dioxide 24 mmol/L (22-30); Chloride 108 mmol/L (98-107); Estimated CRCL calculation 136 ml/min; Estimated Glomerular Filt Rate > 60; Glucose 92 mg/dL (65-110); Lipase 173 U/L (23-300); Potassium 3.7 mmol/L (3.4-5.0); Sodium 139 mmol/L (137-145); Total Protein 7.7 g/dL (6.3-8.2)
[2024-11-26 15:59] LABS: Troponin I < 0.012 ng/mL (0.000-0.034)
--- NOTE | 2024-11-26 18:03 | ECG_ITS ---
Test Date: 2024-11-26 18:07:32 Measurements Intervals [place] Rate: 77 P: 28 [place]: 167 QRS: 16 QRSD: 86 T: 28 QT: 369 QTc: 419 Interpretive Statements SINUS RHYTHM NONSPECIFIC T-WAVE ABNORMALITY SEPTAL INFARCT, AGE INDETERMINATE Compared to ECG 11/26/2024 15:10:01 NO SIGNIFICANT CHANGES Electronically Signed On 11-27-2024 16:07:04 CDT by Luis Leonard M.D.
[2024-11-26 18:39] LABS: Troponin I < 0.012 ng/mL (0.000-0.034)
--- OUTSIDE RECORDS SUMMARY | 2024-11-26 18:39 | XMS_ITS | Encounter Summary ---
Author Organization [facility] Address [address] [place] [id number] Care Team Providers Care Kitchen Hand Name Role Phone New Referring, Provider Primary Care Provider Un available Encounter Details Date Type Department Care Team (Latest Contact Info) Description 03/11/2018 Abstract [facility] , Tevin Cr MD Social [...] on filedocumented in this encounter Care Teams Kitchen Hand Relationship Specialty Start Date End Date New Referring, Provider PCP - General UNKNOWN PHYSICIAN SPECIALTY 06/14/18 documented as of this encounter
--- OUTSIDE RECORDS SUMMARY | 2024-11-26 18:39 | XMS_ITS | Clinical Summary ---
Author Organization [facility] Address [address] [place] [address] Care Team Providers Care Occ Therapy Asst Name Role Phone No, Physician Primary Care Provider [phone] Allergies No known active allergies Medications No known medications Active Problems Problem Noted Date Diagnosed Date Lisfranc dislocation, left, initial encounter Overview (12/01/2021): Added automatically from request for surgery [id number] Closed fracture of bone of left foot 12/01/2021 Overview (12/01/2021): Added automatically from request for surgery [id number] Immunizations Immunization Administration Dates Next Due Tdap [...] on file Legal Sex Male 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 Gender Identity Male 01/25/2022 3:45 PM CDT [...] Tdap) 12/01/2031 Medical Devices Implanted Type Area Mine Analyst Device Identifier Shelf Expiration Date Model / Serial / Lot [employer] Evos Mini 56x7.5x2.2mm 140mm 6 Hole Shaft Variable Angle Lock Low [id number] - [id number] Implanted:Qty: 1 on 12/05/2021 by Catherine Galaviz MD at [facility] Left: Foot [employer] [id number] / / [employer] 2.7mm 4.3mm 34mm Lock Self Retain Flat Head Long Bone Small Bone [id number] - [id number] Implanted:Qty: 1 on 12/05/2021 by Catherine Galaviz MD at [facility] Left: Foot [employer] [id number] / / [employer] 2.7mm 4.3mm 18mm Self Tap Lock Small Bone Long Bone T8 2mm Screw [id number] - [id number] Implanted:Qty: 1 on 12/05/2021 by Catherine Galaviz MD at [facility] Left: Foot [employer] [id number] / / [employer] [facility] 5/64in 9in Trocar Point One End Pin Fixation Stainless [id number] - [id number] Implanted:Qty: 2 on 12/05/2021 by Catherine Galaviz MD at [facility] Left: Foot [employer] [id number] / / [employer] Evos 3.5mm 36mm Self Tap Cortex Screw Bone Sterile [id number] - [id number] Implanted:Qty: 1 on 12/05/2021 by Catherine Galaviz MD at [facility] Left: Foot [employer] [id number] / / [employer] Evos Mini 2.4mm 26mm Self Tap Cortex T7 Screw Bone Sterile [id number] - [id number] Implanted:Qty: 1 on 12/05/2021 by Catherine Galaviz MD at [facility] Left: Foot [employer] [id number] / / [employer] Evos Mini 2.4mm 3.8mm 18mm Self Tap Resort Housekeeper Long Bone Small Bone [id number] - [id number] Implanted:Qty: 2 on 12/05/2021 by Catherine Galaviz MD at [facility] Left: Foot [employer] [id number] / / [employer] Evos 2.4mm 16mm Self Tap Self Retaining Drive Small Bone Long [id number] - [id number] Implanted:Qty: 1 on 12/05/2021 by Catherine Galaviz MD at [facility] Left: Foot [employer] [id number] / / [employer] Evos Mini 2.4mm 3.8mm 16mm Lock Long Bone Small Bone T7 Screw [id number] - [id number] Implanted:Qty: 2 on 12/05/2021 by Catherine Galaviz MD at [facility] Left: Foot [employer] [id number] / / [employer] Evos Mini 2.7mm 4.5mm 38mm Self Tap Cortex T8 Screw Bone Sterile [id number] - [id number] Implanted:Qty: 1 on 12/05/2021 by Catherine Galaviz MD at [facility] Left: Foot [employer] [id number] / / [employer] Evos 2.7mm 4.5mm 16mm Self Tap Cortex T8 Screw Bone Mini Plate [id number] - [id number] Implanted:Qty: 1 on 12/05/2021 by Catherine Galaviz MD at [facility] Left: Foot [employer] [id number] / / [employer] 2.7mm 4.5mm 14mm Self Retaining Screwdriver Self Tap Flat Head [id number] - [id number] Implanted:Qty: 1 on 12/05/2021 by Catherine Galaviz MD at [facility] Left: Foot [employer] [id number] / / [employer] Evos Mini 49mm 20 Hole Strenght Low Profile Variable Angle Small [id number] - [id number] Implanted:Qty: 1 on 12/15/2021 by Catherine Galaviz MD at [facility] Left: Foot [employer] [id number] / / Explanted Type Area Mine Analyst Device Identifier Shelf Expiration Date Model / Serial / Lot [employer] Yoselyn .062in 9in Trocar Point One End Orthopedic Wire [id number] - [id number] Explanted:Qty: 5 on 12/05/2021 by Catherine Galaviz MD at [facility] Left: Foot [employer] [id number] S / / Insurance [facility] Care Teams Occ Therapy Asst Relationship Specialty Start Date End Date No, Physician PCP - General 11/30/21
--- OUTSIDE RECORDS SUMMARY | 2024-11-26 18:39 | XMS_ITS | Referral Summary ---
Author Organization [facility] Address [address] [place] [address] Care Team Providers Care Manager Roofing Name Role Phone No, Physician Primary Care Provider [phone] Allergies No known active allergies Medications No known medications Active Problems Problem Noted Date Diagnosed Date Lisfranc dislocation, left, initial encounter Overview (12/01/2021): Added automatically from request for surgery [id number] Closed fracture of bone of left foot 12/01/2021 Overview (12/01/2021): Added automatically from request for surgery [id number] Immunizations Immunization Administration Dates Next Due Tdap [...] on file 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 Gender Identity Male 01/25/2022 3:45 PM [...] on file Medical Devices Implanted Type Area Supervisor Filtration Device Identifier Shelf Expiration Date Model / Serial / Lot [employer] Evos Mini 56x7.5x2.2mm 140mm 6 Hole Shaft Variable Angle Lock Low [id number] - [id number] Implanted:Qty: 1 on 12/05/2021 by Catherine Galaviz MD at [facility] Left: Foot [employer] [id number] / / [employer] 2.7mm 4.3mm 34mm Lock Self Retain Flat Head Long Bone Small Bone [id number] - [id number] Implanted:Qty: 1 on 12/05/2021 by Catherine Galaviz MD at [facility] Left: Foot [employer] [id number] / / [employer] 2.7mm 4.3mm 18mm Self Tap Lock Small Bone Long Bone T8 2mm Screw [id number] - [id number] Implanted:Qty: 1 on 12/05/2021 by Catherine Galaviz MD at [facility] Left: Foot [employer] [id number] / / [employer] Steinmann 5/64in 9in Trocar Point One End Pin Fixation Stainless [id number] - [id number] Implanted:Qty: 2 on 12/05/2021 by Catherine Galaviz MD at [facility] Left: Foot [employer] [id number] / / [employer] Evos 3.5mm 36mm Self Tap Cortex Screw Bone Sterile [id number] - [id number] Implanted:Qty: 1 on 12/05/2021 by Catherine Galaviz MD at [facility] Left: Foot [employer] [id number] / / [employer] Evos Mini 2.4mm 26mm Self Tap Cortex T7 Screw Bone Sterile [id number] - [id number] Implanted:Qty: 1 on 12/05/2021 by Catherine Galaviz MD at [facility] Left: Foot [employer] [id number] / / [employer] Evos Mini 2.4mm 3.8mm 18mm Self Tap Tank Cleaning Supervisor Long Bone Small Bone [id number] - [id number] Implanted:Qty: 2 on 12/05/2021 by Catherine Galaviz MD at [facility] Left: Foot [employer] [id number] / / [employer] Evos 2.4mm 16mm Self Tap Self Retaining Drive Small Bone Long [id number] - [id number] Implanted:Qty: 1 on 12/05/2021 by Catherine Galaviz MD at [facility] Left: Foot [employer] [id number] / / [employer] Evos Mini 2.4mm 3.8mm 16mm Lock Long Bone Small Bone T7 Screw [id number] - [id number] Implanted:Qty: 2 on 12/05/2021 by Catherine Galaviz MD at [facility] Left: Foot [employer] [id number] / / [employer] Evos Mini 2.7mm 4.5mm 38mm Self Tap Cortex T8 Screw Bone Sterile [id number] - [id number] Implanted:Qty: 1 on 12/05/2021 by Catherine Galaviz MD at [facility] Left: Foot [employer] [id number] / / [employer] Evos 2.7mm 4.5mm 16mm Self Tap Cortex T8 Screw Bone Mini Plate [id number] - [id number] Implanted:Qty: 1 on 12/05/2021 by Catherine Galaviz MD at [facility] Left: Foot [employer] [id number] / / [employer] 2.7mm 4.5mm 14mm Self Retaining Screwdriver Self Tap Flat Head [id number] - [id number] Implanted:Qty: 1 on 12/05/2021 by Catherine Galaviz MD at [facility] Left: Foot [employer] [id number] / / [employer] Evos Mini 49mm 20 Hole Strenght Low Profile Variable Angle Small [id number] - [id number] Implanted:Qty: 1 on 12/15/2021 by Catherine Galaviz MD at [facility] Left: Foot [employer] [id number] / / Explanted Type Area Supervisor Filtration Device Identifier Shelf Expiration Date Model / Serial / Lot [employer] Yoselyn .062in 9in Trocar Point One End Orthopedic Wire [id number] - [id number] Explanted:Qty: 5 on 12/05/2021 by Catherine Galaviz MD at [facility] Left: Foot [employer] [id number] S / / Insurance [facility] Member Subscriber Plan / Payer (Ef fective 2021-Present) Name:Yash Magdaleno Relation to Subscriber:Self Name:Yash Magdaleno Payer ID:[id number] (NAIC) Type:[facility] HMO/PPO Address: [place] [id number] Care Teams Manager Roofing Relationship Specialty Start Date End Date No, Physician PCP - General 11/30/21
--- OUTSIDE RECORDS SUMMARY | 2024-11-26 18:39 | XMS_ITS | Clinical Summary ---
Author Organization [facility] Address [address] [place] [id number] Care Team Providers Care Financial Intern Name Role Phone New Referring, Provider Primary [...] Comments Blood Pressure 149/131 06/14/2018 1:28 PM [facility] Pulse 113 06/14/2018 1:27 PM [facility] Temperature 36 C (96.8 F) 06/14/2018 1:27 PM [facility] Respiratory Rate 18 06/14/2018 1:27 PM [facility] Oxygen Saturation 96% 06/14/2018 1:27 PM [facility] Inhaled Oxygen Concentration - - Weight 115.7 kg (255 lb) 06/14/2018 1:27 PM [facility] Height 180.3 cm (5' 11) 06/14/2018 1:27 PM [facility] Body Mass Index 35.57 06/14/2018 1:27 PM [facility] Plan of Treatment Health Maintenance Due Date [...] age to complete this topic Care Teams Financial Intern Relationship Specialty Start Date End Date New Referring, Provider PCP - General UNKNOWN PHYSICIAN SPECIALTY 06/14/18
== END 2024-11-26 19:33 | disposition home or self-care (01) ==
PROVIDERS: Emergency Medicine; Emergency Provider Student in an Organized Health Care Education/Training Program
DX: R07.89 Other chest pain (principal); F17.210 Nicotine dependence, cigarettes, uncomplicated
CPT/HCPCS: 36415; 71046; 71275; 80053; 83690; 84484; 85025; 85610; 85730; 93005; 99284; Q9967